=== PATIENT | female | born 1960 | race African-American/Black ===

== ENCOUNTER 2020-07-08 03:46 | Emergency (ER) | payer MEDICAID, OTHER ==
[~2020-07-08] VITALS: Ht 170.2 cm; Wt 114.0 kg
[~2020-07-08 03:46] MED LIST: ALBU4TAB6; ASPI-1497 PO; CEPH500C2 PO; CLAR10 PO; DIPH25CA83 PO; OMEP40CA12 PO; P20 PO; TRAM50TA3 PO
[2020-07-08] MEDS ORDERED: OLANZAPINE 10 MG/VIAL IM ONE (05:15)
[2020-07-08 05:21] LABS: BASOPHILS % 1.3 % (0.0-2.0); EOSINOPHILS % 2.6 % (0.0-5.0); HEMATOCRIT. 43.2 % (36.0-48.0); HEMOGLOBIN. 14.4 g/dL (12.0-16.0); LYMPHOCYTES % 33.6 % (20.0-50.0); MEAN CORPUSCULAR HEMOGLOBIN 30.4 pg (28.0-32.0); MEAN CORPUSCULAR VOLUME 91.1 fL (81.0-99.0); MEAN PLATELET VOLUME 8.4 fl (7.4-10.4); MONOCYTES % 8.5 % (2.0-8.0); PLATELET 243 x1000/uL (130-400); RED BLOOD CELL COUNT 4.74 mill/uL (4.2-5.4)
[2020-07-08 05:26] LABS: CHLORIDE 106 mEq/L (98-107)
[2020-07-08 05:32] LABS: ETHANOL BLOOD < 10 mg/dL
[2020-07-08 13:14] VITALS: BP 117/62
== END 2020-07-08 13:28 | disposition home or self-care (01) ==
LOC: ER 03:46
DX: F16.10 Hallucinogen abuse, uncomplicated (principal); J45.909 Unspecified asthma, uncomplicated; I10 Essential (primary) hypertension; Z85.9 Personal history of malignant neoplasm, unspecified
CPT/HCPCS: 36415; 80053; 80320; 84484; 85025; 93005; 96372; 99285; J3490; G0480